=== PATIENT | male | born 1950 | race Caucasian/White ===

== ENCOUNTER 2019-01-06 16:41 | Emergency (ER) | payer MEDICARE, OTHER ==
[2019-01-06] MEDS ORDERED: Ondansetron PF 4 MG/2 ML Vial ONE (17:12)
[2019-01-06] MEDS ORDERED: Morphine 4 MG/ML VIAL ONE ×2 (17:12→18:03)
[2019-01-06 17:28] LABS: Hemoglobin 15.6 g/dL (14.0-18.0); Mean Corpuscular HGB CONC 33.5 g/dL (32.0-36.0); Mean Corpuscular Hemoglobin 29.8 pg (27.0-31.0); Mean Corpuscular Volume 88.9 fL (78.0-98.0); RBC Distribution Width 12.6 % (11.5-14.5); Red Blood Cell (RBC) Count 5.24 mill/uL (4.70-6.10); White Blood Cell (WBC) Count 6.4 thou/uL (4.8-10.8)
[2019-01-06 17:29] LABS: #Lymphocytes 2.2 thou/uL (1.20-3.40); #Monocytes 0.5 thou/uL (0.11-0.59); #Neutrophils 4.4 thou/uL (1.40-6.50); %Basophils 0.6 % (0.0-1.0); %Eosinophils 0.4 % (0.0-10.0); %Lymphocytes 30.7 % (21.0-51.0); %Monocytes 7.3 % (0.0-10.0); Mean Platelet Volume 9.1 fL (7.4-10.4); Platelet Count 136 thou/uL (130-400)
[2019-01-06 17:48] LABS: ALT (SGPT) 7 U/L (8-55); AST (SGOT) 12 U/L (5-34); Albumin 4.1 g/dL (3.4-4.8); Alkaline Phosphatase 70 U/L (40-150); Anion Gap 13 mmol/L (10-20); BUN (Urea Nitrogen) 25 mg/dL (8.4-25.7); Bilirubin, Total 0.9 mg/dL (0.2-1.2); Calc. Creatinine Clearance 0 mL/min (70-130); Calcium 9.6 mg/dL (7.8-10.44); Carbon Dioxide 26 mmol/L (23-31); Chloride 105 mmol/L (98-107); Estimated GFR-MDRD 35; Globulin 2.3 g/dL (2.4-3.5); Glucose 123 mg/dL (80-115); Lipase 18 U/L (8-78); Potassium 4.1 mmol/L (3.5-5.1); Protein, Total 6.4 g/dL (5.8-8.1); Sodium 140 mmol/L (136-145)
--- NOTE | 2019-01-06 17:53 | CT ---
EXAM: ABDOMEN AND PELVIC CT SCAN WITHOUT IV CONTRAST: 01/06/19 HISTORY: Left flank pain for three days. FINDINGS: The lung bases are clear. Status post cholecystectomy. Liver, pancreas, spleen, adrenal glands are un remarkable. Nonobstructing bilateral renal calculi. Fairly high grade obstruction of the left upper c ollecting system secondary to an upper ureteral calculus measuring 0.7 x 1.2 cm with hydronephrosis a nd perirenal fat stranding. Colonic diverticulosis without acute diverticulitis. No CT evidence for a cute appendicitis. Unremarkable appearing urinary bladder. No abscess, adenopathy, or abnormal fluid collection. IMPRESSION: Obstructing left ureteral calculus. Nonobstructing bilateral renal calculi. Other findings as above. POS: NIC
[2019-01-06 19:24] LABS: Bilirubin Negative (Negative); Blood, Urine 2+ (Negative); Clarity Clear (Clear); Glucose, Urine (Dipstick) Normal (Negative); Leukocyte Negative Leu/uL (Negative); Nitrite Negative (Negative); Protein, Urine (Dipstick) Negative (Neg-Trace); Squamous Epithelial None Seen HPF (0-3); Urobilinogen Normal mg/dL (Less than 2)
[2019-01-06 19:34] LABS: Bacteria/HPF Rare-Few HPF (None Seen)
== END 2019-01-06 20:09 | disposition home or self-care (01) ==
LOC: ERS 16:41
DX: N13.2 Hydronephrosis with renal and ureteral calculous obstruction (principal); I10 Essential (primary) hypertension; F41.9 Anxiety disorder, unspecified; Z79.899 Other long term (current) drug therapy
CPT/HCPCS: 36415; 74176; 80053; 81003; 81015; 83690; 84484; 85025; 93005; 96361; 96374; 96375; 96376; J2270; J2405

== ENCOUNTER 2022-01-30 13:55 | Emergency (ER) | payer MEDICARE, OTHER ==
[2022-01-30 15:20] LABS: Bacteria/HPF None Seen HPF (None Seen); Bilirubin Negative (Negative); Blood, Urine 3+ (Negative); Clarity Clear (Clear); Glucose, Urine (Dipstick) Normal (Negative); Ketone, Urine Negative (Negative); Leukocyte Negative Leu/uL (Negative); Nitrite Negative (Negative); Protein, Urine (Dipstick) Negative (Neg-Trace); RBC/HPF Greater than 50 HPF (0-3); Specific Gravity, Urine 1.026 (1.002-1.036); Squamous Epithelial None Seen HPF (0-3); Urobilinogen Normal mg/dL (Less than 2); WBC/HPF 0-3 HPF (0-3); pH, Urine 5.5 (5.0-9.0)
[2022-01-30 15:25] LABS: Urine Culture Reflex No No
[2022-01-30 16:11] LABS: #Eosinphils 0.1 thou/uL (0.0-0.7); #Lymphocytes 1.9 thou/uL (1.20-3.40); #Monocytes 0.7 thou/uL (0.11-0.59); %Basophils 0.3 % (0.0-1.0); %Eosinophils 0.8 % (0.0-10.0); %Monocytes 8.9 % (0.0-10.0); Hemoglobin 14.8 g/dL (14.0-18.0); Mean Corpuscular HGB CONC 35.4 g/dL (32.0-36.0); Mean Corpuscular Hemoglobin 32.3 pg (27.0-31.0); Mean Corpuscular Volume 91.1 fL (78.0-98.0); RBC Distribution Width 13.5 % (11.5-14.5); Red Blood Cell (RBC) Count 4.58 mill/uL (4.70-6.10); White Blood Cell (WBC) Count 7.7 thou/uL (4.8-10.8)
[2022-01-30 16:30] LABS: ALT (SGPT) 9 U/L (8-55); AST (SGOT) 17 U/L (5-34); Albumin 3.9 g/dL (3.4-4.8); Alkaline Phosphatase 59 U/L (40-110); Anion Gap 14 mmol/L (10-20); BUN (Urea Nitrogen) 26 mg/dL (8.4-25.7); Bilirubin, Total 0.8 mg/dL (0.2-1.2); Calc. Creatinine Clearance 0 mL/min (70-130); Calcium 8.9 mg/dL (7.8-10.44); Carbon Dioxide 26 mmol/L (23-31); Chloride 104 mmol/L (98-107); Estimated GFR 41; Globulin 2.6 g/dL (2.4-3.5); Glucose 97 mg/dL (80-115); Platelet Count 97 thou/uL (130-400); Potassium 4.6 mmol/L (3.5-5.1); Protein, Total 6.5 g/dL (5.8-8.1); Sodium 139 mmol/L (136-145)
[2022-01-30 16:31] LABS: Platelet Morphology Comment Appears Decreased; RBC Morphology Normal
== END 2022-01-30 16:29 | disposition home or self-care (01) ==
LOC: ERS 13:55
DX: N13.2 Hydronephrosis with renal and ureteral calculous obstruction (principal); I10 Essential (primary) hypertension
CPT/HCPCS: 36415; 74176; 80053; 81001; 85025; 93005

== ENCOUNTER 2024-03-15 13:35 | Observation (INO) | payer MEDICARE, OTHER ==
[2024-03-15] MEDS ORDERED: Aspirin Chewable 81 MG TAB ONE (14:00)
[2024-03-15 14:32] LABS: #Basophils 0.04 10x3/uL (0.0-0.2); #Eosinophils Less than 0.03 10x3/uL (0.0-0.7); %Basophils 0.7 % (0.0-1.0); %Eosinophils 0.2 % (0.0-10.0); %Monocytes 6.9 % (0.0-10.0); Hematocrit 44.2 % (42.0-52.0); Hemoglobin 14.9 g/dL (14.0-18.0); Mean Corpuscular HGB CONC 33.7 g/dL (32.0-36.0); Mean Corpuscular Hemoglobin 29.6 pg (27.0-31.0); Mean Corpuscular Volume 87.7 fL (78.0-98.0); Mean Platelet Volume 11.1 fL (7.4-10.4); Platelet Count 133 10x3/uL (130-400); RBC Distribution Width 13.6 % (11.5-14.5); Red Blood Cell (RBC) Count 5.04 mill/uL (4.70-6.10)
[2024-03-15 14:39] LABS: ALT (SGPT) 9 U/L (8-55); AST (SGOT) 15 U/L (5-34); Albumin 3.8 g/dL (3.4-4.8); Alkaline Phosphatase 55 U/L (40-110); Anion Gap 11 mmol/L (10-20); BUN (Urea Nitrogen) 16 mg/dL (8.4-25.7); Bilirubin, Total 1.2 mg/dL (0.2-1.2); Calc. Creatinine Clearance 0 mL/min (70-130); Calcium 8.9 mg/dL (7.8-10.44); Carbon Dioxide 28 mmol/L (23-31); Chloride 105 mmol/L (98-107); Estimated GFR 57; Globulin 2.6 g/dL (2.4-3.5); Glucose 92 mg/dL (83-110); Lipase 26 U/L (8-78); Potassium 4.2 mmol/L (3.5-5.1); Protein, Total 6.4 g/dL (5.8-8.1); Sodium 140 mmol/L (136-145)
[2024-03-15 14:44] LABS: Troponin I Less than 0.010 ng/mL (< 0.028)
[2024-03-15] MEDS ORDERED: Acetaminophen 325 MG TAB PO PRN (16:16)
[2024-03-15] MEDS ORDERED: Nitroglycerin 0.4 MG TAB (25 Tab Bottle) SL PRN (16:16)
[2024-03-15 17:07] LABS: Cardiac Risk 4.6 (Less than 4.5); Cholesterol 156 mg/dl (< 200 Desired); HDL Cholesterol 34 mg/dL (>60 Neg Risk); LDL Cholesterol, Calculated 102 mg/dL; Magnesium 1.9 mg/dL (1.6-2.6); Triglycerides 98 mg/dL (Less than 150)
[2024-03-15 17:46] VITALS: BMI 28.3
[2024-03-15] MEDS: hydrALAZINE 20 MG/ML VIAL SLOW IVP PRN (18:18)
[2024-03-15 18:30] LABS: Troponin I Less than 0.010 ng/mL (< 0.028)
[2024-03-15] MEDS: ALPRAZolam 0.25 MG TAB PO SCH (20:42)
[2024-03-15] MEDS: Atorvastatin Calcium 40 MG TAB PO SCH (20:42)
[2024-03-15] MEDS: Famotidine 20 MG TAB PO SCH (20:42)
[2024-03-15 20:48] LABS: Troponin I Less than 0.010 ng/mL (< 0.028)
[2024-03-16 04:05] LABS: Anion Gap 9 mmol/L (10-20); BUN (Urea Nitrogen) 14 mg/dL (8.4-25.7); Calc. Creatinine Clearance 69 mL/min (70-130); Calcium 8.9 mg/dL (7.8-10.44); Carbon Dioxide 28 mmol/L (23-31); Chloride 106 mmol/L (98-107); Estimated GFR 68; Glucose 94 mg/dL (83-110); Potassium 4.4 mmol/L (3.5-5.1); Sodium 139 mmol/L (136-145)
[2024-03-16] MEDS: Enoxaparin 40 MG (0.4 mL) SYRINGE SC SCH (08:00)
[2024-03-16] MEDS: Escitalopram Oxalate 10 mg Tablet PO SCH (08:01)
[2024-03-16] MEDS: Aspirin Chewable 81 MG TAB PO SCH (08:02)
[2024-03-16] MEDS ORDERED: Regadenoson 0.4 MG/5 ML SYRINGE ONE (13:24)
[2024-03-16] MEDS: Losartan 25 MG TAB PO SCH (15:09)
[2024-03-17 07:56] VITALS: BP 154/93; TEMP 98.1
== END 2024-03-17 10:50 | disposition home or self-care (01) ==
LOC: ERS 13:35 → 2SW 16:45
PROVIDERS: ADMIT Internal Medicine; ATTEND Internal Medicine
DX: R07.9 Chest pain, unspecified (principal); I10 Essential (primary) hypertension; F41.9 Anxiety disorder, unspecified; Z90.49 Acquired absence of other specified parts of digestive tract; Z98.890 Other specified postprocedural states; Z79.82 Long term (current) use of aspirin; Z79.899 Other long term (current) drug therapy; Z88.1 Allergy status to other antibiotic agents
CPT/HCPCS: 71045; 78452; 80048; 80061; 83690; 83735; 83880; 84484 ×2; 93005; 93017; 96372; 96374; 99285; A9500; G0378 ×4; J0360; J1650; J2785 ×2; 36415; 80053; 84443; 85025